=== PATIENT | male | born 1950 | race Caucasian/White ===

== ENCOUNTER → 2016-09-21 | Outpatient (CLI) | payer MEDICARE, OTHER ==
[~2016-09-21] MED LIST: ADVIL200 MG PO; ASPIRIN EC81 MG PO; BACTRIM DS1 TAB PO; CIALIS5 MG PO; CLA 1,000 MG1000 MG PO; COLACE100 MG PO; DILAUDID 2MG(HYD2 MG PO; FLOMAX0.4 MG PO; HYPROST1 EACH PO; JUICE PLUS FRUIT PO; LIPITOR40 MG PO; METAMUCIL CAPSU1 CAP PO; MIRALAX17 GM PO; MOBIC15 MG PO; PAIN RELIEF PM1 EAC2 PO; PROTONIX40 MG PO; TENORMIN25 MG PO; THERA-VITE W/ B1 TAB PO; TYLENOL EXTRA500 MG PO; VALIUM5 MG PO; VITAMIN D-32000 UNI1 PO; XARELTO10 MG PO; ZOLPIDEM TART6.25 MG PO
--- NOTE | ~2016-09-21 | PUL ---
PATIENT'S NAME: BILL STUBBS [facility] AGE: 65 Y [address] ROOM: [place] [address] LOCATION: [facility] ADMIT DATE: 09/21/2016 Pulmonary DISCHARGE DATE: FAMILY PHYSICIAN: Mare Mosley APRN ATTENDING PHYSICIAN: Mare Mosley NAME OF PROCEDURE: Sleep study PROCEDURE DATE: 09/21/16 TECH: RODY Benitez TEST #: [facility] [place]# [id number] TECHNICAL PARAMETERS: The patient was studied using International 10/20 measuring system. While the patient was studied, there was continuous monitoring of EEG (8 leads), EOG (2 leads), EKG (3 leads), submental EMG (3 leads), tibial (4 leads), respiratory inductive plethysmography (RIP) for thoracic and abdominal effort, oral and nasal airflow with a thermocouple and pressure transducer, and oximetry. The final operations technician also performed visual and auditory observations noting things like body position, patient's status, breath sounds, artifact, snoring level and patient comments. Continuous sound was monitored using a 2-way speaker system and video monitoring was performed using an infrared camera. Review of the entire study was performed epoch by epoch utilizing a single epoch and multiple epoch capability sleep system. MEDICAL HISTORY: The patient is a 65-year-old gentleman with daytime sleepiness and snoring. SLEEP STAGE SUMMARY: The patient was studied for a total of 472 minutes of which he slept 337 minutes. He fell asleep in 23 minutes and slept for 71% of the night. Sleep architecture revealed a decline in slow wave sleep. RESPIRATORY SUMMARY: Oxygen saturations ranged from 83-94% and were below 88% for 26 minutes. Prior to initiating CPAP there were 5 apneas and 74 hypopneas for an apnea/hypopnea index severely elevated at 24.4 events per hour. CPAP was initiated and titrated to 10 cm with good control the respiratory events. EKG SUMMARY: Average heart rate 63 beats per minute. LIMB MOVEMENT SUMMARY: No clinically relevant periodic limb movements were noted. SUMMARY: Obstructive sleep apnea responsive to CPAP at 10 cm. PATIENT'S NAME: BILL STUBBS [facility] AGE: 65 Y [address] ROOM: [place] [address] LOCATION: [facility] ADMIT DATE: 09/21/2016 Pulmonary DISCHARGE DATE: FAMILY PHYSICIAN: Mare Mosley APRN ATTENDING PHYSICIAN: Mare Mosley PLAN: Suggest CPAP at 10 cm. Patient will receive results from the ordering provider. MD BREE YEH/ /[id number] dtt: 10/13/16 1429 , Phu Deng. dtd: 09/23/16 1502
== END | disposition disaster alternative care site (69) ==
LOC: GSLP 07-03 21:00
DX: G47.33 Obstructive sleep apnea (adult) (pediatric) (principal)